=== PATIENT | male | born 1940 | race Caucasian/White ===

== ENCOUNTER 2017-12-14 10:55 | Emergency (ER) | payer OTHER, BC ==
[2017-12-14 11:01] VITALS: BP 122/70
--- NOTE | 2017-12-14 11:09 | EDPHY ---
H & P Time Seen by Provider: 12/14/17 11:07 HPI/ROS: CHIEF COMPLAINT: Staple left thumb HISTORY OF PRESENT ILLNESS: 77-year-old [id number] male with up-to- date tetanus was picking up a staple accidentally had a staple impact his left thumb distal phalanx. Occurred shortly prior to arrival. Accidental. PHYSICAL EXAM (Prior to examination, patient consented to physical exam, hands were washed and my usual and customary physical exam procedures followed) 1) GENERAL: Well-developed, well-nourished, alert and oriented. Appears to be in no acute distress. 2) HEAD: Normocephalic 3) HEENT: sclera anicteric 4) LUNGS: Breathing comfortably. 5) SKIN: Left thumb distal phalanx a staple is embedded, parallel to his skin, through and through. Superficial. 6) MUSCULOSKELETAL: No signs of infection. Negative kanavel. 7) NEUROLOGIC: Full sensation distally. Two-point discrimination intact. Smoking Status: Never smoked Constitutional: Initial Vital Signs Temperature (C) 36.9 C 12/14/17 10:55 Heart Rate 69 12/14/17 10:55 Respiratory Rate 18 12/14/17 10:55 Blood Pressure 122/70 H 12/14/17 10:55 O2 Sat (%) 98 12/14/17 10:55 O2 Delivery Mode Room Air Allergies/Adverse Reactions: Penicillins Allergy (Verified 12/14/17 11:01) Home Medications: Medication Instructions Recorded Cephalexin [Keflex] 500 mg PO TID 10 Days cap 12/14/17 Flomax 12/14/17 Propranolol HCl 12/14/17 Tricor 12/14/17 MDM/Departure - MDM Procedures: Procedure: Foreign body removal Indication: Staple in the left distal phalanx thumb Area was prepped draped, using hemostats was able to easily remove the staple. Areas and copiously irrigated. Patient was offered pre procedure digital nerve block which he declined. Patient tolerated procedure well - Depart Disposition: Home, Routine, Self-Care Clinical Impression: Foreign body of left thumb Qualifiers: Encounter type: initial encounter Qualified Code(s): S60.352A - Superficial foreign body of left thumb, initial encounter Condition: Good Instructions: Soft Tissue Foreign Body (ED) Additional Instructions: Return to the ER if you develop redness, swelling, discharge, warmth to the wound, red streaks going up your arm, or any other symptoms that concern you. Prescriptions: Cephalexin [Keflex] 500 mg PO TID 10 Days cap Referrals: Katelin Reyes MD [Primary Care Provider] - 2-3 days, call for appt.
== END 2017-12-14 11:21 | disposition home or self-care (01) ==
DX: S61.032A Puncture wound without foreign body of left thumb without damage to nail, initial encounter (principal); W26.9XXA Contact with unspecified sharp object(s), initial encounter; Y92.9 Unspecified place or not applicable